=== PATIENT | male | born 1930 | race Caucasian/White ===

== ENCOUNTER 2017-01-11 13:29 | Emergency (ER) | payer OTHER ==
[~2017-01-11] VITALS: Ht 180.3 cm; Wt 100.0 kg
[~2017-01-11 13:29] MED LIST: ASPI81 PO; ATEN1TAB73 PO; CALC.25 PO; CLOP75 PO; FLAX1300 PO; LACTCAP7 PO; LORA-474 PO; PROS5TAB2 PO; PROT40TA PO; SERT50 PO; TAB-TAB PO; TERA5CAP34 PO; TRIA37.512 PO; VITA100018 PO; VITA250T32 PO; ZOCO40TA PO
[2017-01-11 13:31] VITALS: BP 163/69; PULSE 62; RESP 16; TEMP 98; O2SAT 98
[2017-01-11] MEDS ORDERED: ONDANSETRON HCL 4 MG/2 ML VIAL IV PUSH ONE (14:00)
[2017-01-11] MEDS ORDERED: MORPHINE SULFATE 4 MG/ML INJ IV PUSH ONE (14:00)
[2017-01-11] MEDS ORDERED: PANTOPRAZOLE SODIUM 40 MG VIAL IV PUSH ONE (14:00)
[2017-01-11] MEDS ORDERED: SODIUM CHLORIDE 0.9% FLUSH 10 ML FLUSH IVF PRN (14:00)
[2017-01-11 14:01] VITALS: RESP 18; O2SAT 98
--- NOTE | 2017-01-11 14:12 | PD ---
HPI . Heart burn and back pain Chief Complaint: Pain: Acute or Chronic Time Seen by Provider: 13:40 Travel History International Travel<30 days: No Contact w/Intl Traveler<30days: No Traveled to known affect area: No History of Present Illness HPI Patient presents with the chief complaint of heartburn and mid back pain. He states that he developed some heartburn while he was at [employer] this morning. He states that it was pretty mild at that point. He then went to [employer] and had a negative mouth and in a couple coffee. His dyspepsia increased after this. He subsequently developed a sharp pain in the mid back that he describes as like a sword. He states that the pain was really bad at that point but that it has eased off some since then. He reports no immediate relief of his discomfort with calms and water. He reports no obvious exacerbating factors such as pain with movement or deep respirations. He has had a previous heart attack and has had previous cholecystitis. He states that the discomfort that he is experiencing today is not like either of those. PFSH Past Medical History Arthritis: Yes Asthma: No Autoimmune Disease: No Blood Disorders: No Anxiety: Yes Depression: Yes Heart Rhythm Problems: No Cancer: Yes (SKIN CA,) Cardiovascular Problems: Yes High Cholesterol: Yes Chemotherapy: No Chest Pain: No Congestive Heart Failure: No COPD: No Cerebrovascular Accident: No Diabetes: No Endocrine: No Gastrointestinal Disorders: Yes (GERD) GERD: Yes Glaucoma: No Genitourinary: No Headaches: No Hepatitis: No Hiatal Hernia: No Hypertension: Yes Immune Disorder: No Implanted Vascular Access Dvce: Yes Kidney Stones: No Musculoskeletal: Yes Neurologic: No Psychiatric: No Reproductive: No Respiratory: No Migraines: No Radiation Therapy: No Renal Failure: No Seizures: No Sickle Cell Disease: No Sleep Apnea: No Thyroid Disease: No Ulcer: No Past Surgical History Abdominal Surgery: Yes (APPENDECTOMY) AICD: No Appendectomy: Yes Arteriovenous Shunt: No Body Medical Devices: METAL DEVICE IN EARS AND CARDIAC STENTS Cardiac Surgery: Yes (STENTS IN HEART, CABG) Cholecystectomy: No Coronary Stent: Yes (X 2) Ear Surgery: Yes (BILATERAL) Endocrine Surgery: No Eye Surgery: No Genitourinary Surgery: No Gynecologic Surgery: No Insulin Pump: No Joint Replacement: No Oral Surgery: No Pacemaker: No Thoracic Surgery: No Other Surgery: Yes (APPY) Social History Alcohol Use: No Tobacco Use: No Substance Use: No Allergies-Medications (Allergen,Severity, Reaction): Coded Allergies: No Known Allergies (Verified , 01/11/17) Reported Meds & Prescriptions Reported Meds & Active Scripts Active Reported Multi-Vitamin Daily (Multiple Vitamin) 1 Tab Tab 1 Tab PO DAILY Probiotic (Probiotic Product) 1 Tab Tab 1 Tab PO DAILY Cranberry Tablet (Cranberry Conc/C/Bacill Coag) 1 Each Tablet 6 Tab PO DAILY Vitamin D3 (Cholecalciferol) 1,000 Unit Tab 1,000 Units PO DAILY Vitamin C (Ascorbic Acid) 1,000 Mg Tablet.er 1,000 Mg PO BID Fish Oil 1200 mg ([place]-3 Fatty Acids) 1 Cap Cap 1,200 Mg PO BID Turmeric (Turmeric Root Extract) 500 Mg Capsule 500 Mg PO DAILY Nexium (Esomeprazole DR) 20 Mg Capdr 20 Mg PO DAILY Aspirin Adult Low Strength (Aspirin) 81 Mg Tabdr 81 Mg PO DAILY Terazosin (Terazosin HCl) 5 Mg Cap 5 Mg PO HS Sertraline (Sertraline HCl) 50 Mg Tab 25 Mg PO DAILY Atorvastatin (Atorvastatin Calcium) 40 Mg Tab 40 Mg PO HS Ativan (Lorazepam) 1 Mg Tab 1 Mg PO BID Amlodipine (Amlodipine Besylate) 2.5 Mg Tab 2.5 Mg PO DAILY Triamterene-Hydrochlorothiazide 37.5-25 Mg Tab 0.5 Tab PO DAILY Finasteride 5 Mg Tab 5 Mg PO DAILY Do not crush. Review of Systems Except as stated in HPI: all other systems reviewed are Neg General / Constitutional: No: Fever, Chills Cardiovascular: Positive: Chest Pain or Discomfort Respiratory: No: Shortness of Breath Gastrointestinal: Positive: Indigestion, No: Nausea, Vomiting, Diarrhea, Abdominal Pain Musculoskeletal: Positive: Pain (mid back pain) Physical Exam Narrative GENERAL: This is a delightful older gentleman who is in no acute distress. SKIN: Warm and dry. HEAD: Atraumatic. Normocephalic. EYES: Pupils equal and round. Extraocular movements are intact. ENT: No nasal bleeding or discharge. Mucous membranes pink and moist. NECK: Trachea midline. Neck is supple. CARDIOVASCULAR: Regular rate and rhythm. Heart sounds are normal. RESPIRATORY: No accessory muscle use. Lungs are clear with full air movement throughout. There is no chest wall tenderness. GASTROINTESTINAL: Abdomen soft, non-tender, nondistended. I am unable to elicit any epigastric tenderness. MUSCULOSKELETAL: No obvious deformities. No edema. I am unable to elicit any back tenderness. NEUROLOGICAL: Awake and alert. No obvious cranial nerve deficits. Motor grossly within normal limits. Normal speech. PSYCHIATRIC: Appropriate mood and affect; insight and judgment normal. Data Data Last Documented VS Vital Signs Date Time Temp Pulse Resp B/P Pulse Ox O2 Delivery O2 Flow Rate FiO2 01/11/17 14:38 18 01/11/17 14:01 98 Room Air 01/11/17 13:31 98.0 62 163/69 Orders Electrocardiogram (01/11/17 ) Electrocardiogram (01/11/17 13:52) Ckmb (Isoenzyme) Profile (01/11/17 13:52) Complete Blood Count With Diff (01/11/17 13:52) Comprehensive Metabolic Panel (01/11/17 13:52) Magnesium (Mg) (01/11/17 13:52) Troponin I (01/11/17 13:52) Lipase (01/11/17 13:52) Ecg Monitoring (01/11/17 13:52) Bilateral Bp Monitoring (01/11/17 13:52) Iv Access Insert/Monitor (01/11/17 13:52) Oximetry (01/11/17 13:52) Morphine Inj (Morphine Inj) (01/11/17 14:00) Sodium Chloride 0.9% Flush (Ns Flush) (01/11/17 14:00) Cta Thor Abd Aorta W Iv C W3d (01/11/17 13:52) Ondansetron Inj (Zofran Inj) (01/11/17 14:00) Pantoprazole Inj (Protonix Inj) (01/11/17 14:00) CKMB (01/11/17 14:15) CKMB% (01/11/17 14:15) Iohexol 350 Inj (Omnipaque 350 Inj) (01/11/17 15:02) Labs Laboratory Tests Test 01/11/17 14:15 White Blood Count 13.6 TH/MM3 Red Blood Count 4.04 MIL/MM3 Hemoglobin 12.8 GM/DL Hematocrit 38.3 % Mean Corpuscular Volume 94.8 FL Mean Corpuscular Hemoglobin 31.8 PG Mean Corpuscular Hemoglobin 33.5 % Concent Red Cell Distribution Width 13.5 % Platelet Count 173 TH/MM3 Mean Platelet Volume 8.6 FL Neutrophils (%) (Auto) 83.6 % Lymphocytes (%) (Auto) 6.9 % Monocytes (%) (Auto) 7.6 % Eosinophils (%) (Auto) 1.4 % Basophils (%) (Auto) 0.5 % Neutrophils # (Auto) 11.4 TH/MM3 Lymphocytes # (Auto) 0.9 TH/MM3 Monocytes # (Auto) 1.0 TH/MM3 Eosinophils # (Auto) 0.2 TH/MM3 Basophils # (Auto) 0.1 TH/MM3 CBC Comment DIFF FINAL Differential Comment Sodium Level 136 MEQ/L Potassium Level 3.7 MEQ/L Chloride Level 99 MEQ/L Carbon Dioxide Level 26.5 MEQ/L Anion Gap 11 MEQ/L Blood Urea Nitrogen 23 MG/DL Creatinine 1.44 MG/DL Estimat Glomerular Filtration 46 ML/MIN Rate Random Glucose 109 MG/DL Calcium Level 9.0 MG/DL Magnesium Level 1.9 MG/DL Total Bilirubin 0.6 MG/DL Aspartate Amino Transf 21 U/L (AST/SGOT) Alanine Aminotransferase 32 U/L (ALT/SGPT) Alkaline Phosphatase 51 U/L Total Creatine Kinase 117 U/L Creatine Kinase MB 2.6 NG/ML Troponin I LESS THAN 0.02 NG/ML Total Protein 6.9 GM/DL Albumin 3.6 GM/DL Lipase 150 U/L MDM Medical Decision Making Medical Screen Exam Complete: Yes Emergency Medical Condition: Yes Medical Record Reviewed: Yes (past medical history significant for previous IN status post PTCA. He also has hypertension, BPH, diverticulosis and GERD.) Interpretation(s) EKG shows sinus bradycardia with a rate of 54. No acute ischemic change. No change from his previous EKG. Differential Diagnosis Differential diagnosis of chest pain includes but is not limited to musculoskeletal pain, pulmonary embolism, acute coronary syndrome, pneumonia, pleurisy, dissecting thoracic aneurysm, pancreatitis Narrative Course Patient presents for the evaluation of heartburn and mid back pain. CTA of chest: 1. No evidence of aortic dissection. 2. Uncomplicated colonic diverticulosis. 3. Cardiomegaly and coronary artery calcifications. 4. 18 mm left renal cyst. 5. Degenerative changes throughout the thoracolumbar spine. CBC & BMP Diagram 01/11/17 14:15 Cardiac enzymes are negative. Liver function studies are normal. Lipase is normal. The patient feels better and is ready to go home. Diagnosis Primary Impression: Dyspepsia Additional Impression: Back pain Qualified Code: M54.6 - Acute midline thoracic back pain Patient Instructions: Back Pain (ED), General Instructions, Narcotic given in the ED Med/Other Pt SpecificInfo: Prescription(s) given Scripts Tramadol 50 Mg Tab50 Mg PO Q4H PRN (PAIN) #12 TAB Ref 0 Prov:Alida Bear MD 01/11/17 Disposition: 01 DISCHARGE HOME Condition: Stable Alida Bear MD January 11, 2017 14:12
[2017-01-11] MEDS ORDERED: MULT-65 PO (14:18)
[2017-01-11] MEDS ORDERED: TRIA37.5 PO (14:18)
[2017-01-11] MEDS ORDERED: PROB1TAB PO (14:18)
[2017-01-11] MEDS ORDERED: TURM500C4 PO (14:18)
[2017-01-11] MEDS ORDERED: LORA-474 PO (14:18)
[2017-01-11] MEDS ORDERED: ASCO100016 PO (14:18)
[2017-01-11] MEDS ORDERED: SERT-132 PO (14:18)
[2017-01-11] MEDS ORDERED: CRAN1TAB5 PO (14:18)
[2017-01-11] MEDS ORDERED: FISH1200 PO (14:18)
[2017-01-11] MEDS ORDERED: AMLO2.5T PO (14:18)
[2017-01-11] MEDS ORDERED: ASPI1TAB91 PO (14:18)
[2017-01-11] MEDS ORDERED: NEXI20CA PO (14:18)
[2017-01-11] MEDS ORDERED: FINA5TAB2 PO (14:18)
[2017-01-11] MEDS ORDERED: ATOR40TA16 PO (14:18)
[2017-01-11] MEDS ORDERED: VITA100018 PO (14:18)
[2017-01-11] MEDS ORDERED: TERA5CAP3 PO (14:18)
[2017-01-11 14:26] LABS: AUTOMATED NEUTROPHIL # 11.4 TH/MM3 (1.8-7.7); BASOPHIL # 0.1 TH/MM3 (0-0.2); BASOPHIL % 0.5 % (0.0-2.0); EOSINOPHIL # 0.2 TH/MM3 (0-0.4); EOSINOPHIL % 1.4 % (0.0-4.0); HEMATOCRIT 38.3 % (39.0-51.0); HEMO FLAGS DIFF FINAL; LYMPH % 6.9 % (9.0-44.0); LYMPHOCYTE # 0.9 TH/MM3 (1.0-4.8); MEAN CELL VOLUME 94.8 FL (80.0-100.0); MEAN CORPUSCULAR HEMOGLOBIN 31.8 PG (27.0-34.0); MEAN CORPUSCULAR HGB CONC 33.5 % (32.0-36.0); MONO % 7.6 % (0.0-8.0); NEUT % 83.6 % (16.0-70.0); PLATELET COUNT 173 TH/MM3 (150-450); RED BLOOD COUNT 4.04 MIL/MM3 (4.50-5.90); RED CELL DISTRIBUTION WIDTH 13.5 % (11.6-17.2); WHITE BLOOD COUNT 13.6 TH/MM3 (4.0-11.0)
[2017-01-11 14:38] VITALS: RESP 18
[2017-01-11 14:43] LABS: ANION GAP 11 MEQ/L (5-15); AST (GOT) 21 U/L (15-37); BICARBONATE 26.5 MEQ/L (21.0-32.0); BLOOD UREA NITROGEN 23 MG/DL (7-18); CHLORIDE 99 MEQ/L (98-107); GLOMERULAR FILTRATION RATE 46 ML/MIN (>89); MAGNESIUM 1.9 MG/DL (1.5-2.5); POTASSIUM 3.7 MEQ/L (3.5-5.1); SODIUM (NA) 136 MEQ/L (136-145)
[2017-01-11 14:48] LABS: ALKALINE PHOSPHATASE 51 U/L (45-117); ALT (GPT) 32 U/L (12-78); CREATINE KINASE 117 U/L (39-308); TOTAL BILIRUBIN ADULT 0.6 MG/DL (0.2-1.0)
[2017-01-11 15:00] LABS: CKMB 2.6 NG/ML (0.5-3.6)
[2017-01-11] MEDS ORDERED: IOHEXOL 350 MG/ML 10 ML VIAL (for RAD DIAG) IV ONE (15:02)
--- NOTE | 2017-01-11 15:37 | RADRPT ---
EXAM DATE/TIME: 01/11/2017 15:00 This report includes an Addendum and supersedes previous reports for this exam. [facility] COMPARISON: No previous studies available for comparison. INDICATIONS : Upper back pain today. IV CONTRAST: 96 cc Omnipaque 350 (iohexol) IV RADIATION DOSE: 12.47 CTDIvol (mGy) MEDICAL HISTORY : Cardiovascular disease. Hypertension. skin cancer SURGICAL HISTORY : Appendectomy. ENCOUNTER: Initial ACUITY: 1 day PAIN SCALE: 8/10 LOCATION: Upper back TECHNIQUE: Volumetric scanning was performed using a multi-row detector CT scanner. The data was post processed with a variety of visualization algorithms including full volume maximum intensity projection, multi -planar sliding thin slab reformation, curved planar reformation, and surface rendering techniques. Using automated exposure control and adjustment of the mA and/or kV according to patient size, radiat ion dose was kept as low as reasonably achievable to obtain optimal diagnostic quality images. FINDINGS: LUNGS: There is no consolidation or pneumothorax. No concerning pulmonary nodule is visualized. No pleural fluid is present. MEDIASTINUM: No abnormally enlarged lymph nodes by CT criteria. No axillary or hilar abnormalities are identified. The heart is enlarged. Coronary artery calcifications are noted. ABDOMEN: The liver and spleen are free of focal defects. Status post cholecystectomy. The pancreas demonstrate s no abnormality. The adrenal glands are normal. The kidneys demonstrate no evidence of solid renal m ass or hydronephrosis. Left renal cyst is noted measuring 18 mm. No free fluid or abdominal masses ar e identified. No para-aortic adenopathy is seen. PELVIS: Uncomplicated colonic diverticulosis is noted. No evidence of free fluid or pelvic mass. No abnormall y enlarged inguinal or retroperitoneal lymph nodes are present. The bladder is unremarkable. THORACIC AORTA: The thoracic aortic root is normal with normal branching of the great vessels. There is no evidence of aneurysm or dissection. ABDOMINAL AORTA: The aorta is normal in caliber without aneurysm or dissection. The renal arteries are patent bilater ally. The proximal celiac and superior mesenteric arteries are patent and normal in diameter. PELVIC VESSELS: The internal iliac and external iliac vessels are patent without aneurysm or stenosis. CONCLUSION: 1. No evidence of aortic dissection. 2. Uncomplicated colonic diverticulosis. 3. Cardiomegaly and coronary artery calcifications. 4. 18 mm left renal cyst. 5. Degenerative changes throughout the thoracolumbar spine. Kelvin Morton MD on January 11, 2017 at 15:28 Board Certified Radiologist. This report was verified electronically. ADDENDUM: Minimal patchiness is noted within the left posterior lung base consistent with atelectasis and/or mi nimal infiltrate. Clinical correlation is recommended Kelvin Morton MD on January 11, 2017 at 16:17 Board Certified Radiologist. This report was verified electronically.
[2017-01-11] MEDS ORDERED: TRAM50TA PO (15:45)
--- NOTE | 2017-01-11 17:07 | EKG ---
Date Performed: 01/11/2017 Time Performed: 13:56:40 PTAGE: 86 years EKG: BASELINE ARTIFACT PRESENT. SINUS BRADYCARDIA MINIMAL VOLTAGE CRITERIA FOR LVH, CONSIDER NOR MAL VARIANT SEPTAL MYOCARDIAL INFARCTION ABNORMAL ECG NO SIGNIFICANT CHANGE FROM PRIOR ELECTROCARDIOG [place]. PREVIOUS TRACING : 10/21/2012 06.42 DOCTOR: Wilfrido Forrester Interpretating Date/Time 01/11/2017 17:05:57
== END 2017-01-11 16:02 | disposition home or self-care (01) ==
LOC: NEPE 13:29
DX: R10.13 Epigastric pain (principal); M54.6 Pain in thoracic spine; N28.1 Cyst of kidney, acquired; K57.30 Diverticulosis of large intestine without perforation or abscess without bleeding; K21.9 Gastro-esophageal reflux disease without esophagitis; I10 Essential (primary) hypertension; I25.2 Old myocardial infarction; R00.1 Bradycardia, unspecified; Z95.5 Presence of coronary angioplasty implant and graft; Z95.1 Presence of aortocoronary bypass graft; Z79.899 Other long term (current) drug therapy; I51.7 Cardiomegaly
CPT/HCPCS: 71275; 74174; 80053; 82550; 82552; 83690; 83735; 84484; 85025; 93005; 96374; 96375; 99285; C9113; J2270; J2405; Q9967